=== PATIENT | female | born 1990 | race Caucasian/White ===

== ENCOUNTER 2025-06-03 17:16 | Inpatient (IN) ==
[2025-06-03] MEDS: SODIUM CHLORIDE 0.9% 1,000 ML IV SCH (17:47)
[2025-06-03] MEDS: ACETAMINOPHEN 1,000 MG/100 ML VIAL IV STA (17:47)
[2025-06-03 18:08] LABS: Hematocrit (blood only) 39.7 % (37.0-47.0); Hemoglobin 13.1 g/dl (12.0-16.0); Mean Corpuscular Hemoglobin 30.9 pg (25.0-34.0); Mean Corpuscular Volume 93.6 fL (80.0-100.0); Platelet Count 248 K/uL (130-400); RDW Standard Deviation 44.3 fL (36.4-46.3); Red Blood Count 4.24 M/uL (4.20-5.40); White Blood Count 8.70 K/ul (4.8-10.8)
--- NOTE | 2025-06-03 18:23 | XRay Report ---
Clinical History: Possible sepsis Technique: A frontal view of the chest was obtained Findings: There are no confluent pulmonary infiltrates. The heart size is within normal limits. No pleural effusion or pneumothorax is seen. There is no definite pulmonary nodule. No fracture is noted. No foreign body is seen Impression: No active disease Electronically signed by Catracho Anderson 06-03-2025 6:23 PM
[2025-06-03 18:25] LABS: Immature Granulocytes # (auto) 0.03 K/uL (0.01-0.20); Immature Granulocytes % (auto) 0.3 %
[2025-06-03 18:26] LABS: Alanine Aminotransferase 7 U/L (7-52); Alkaline Phosphatase 95 U/L (34-104); Anion Gap 7 (3-11); Bilirubin,Total 0.4 mg/dl (0.2-1.0); Blood Urea Nitrogen 13 mg/dl (6-23); Calcium 9.1 mg/dl (8.6-10.3); Carbon Dioxide 24 mmol/L (21-32); Chloride 104 mmol/L (98-107); Creatinine Clr Calc Pharmacy 72.1 ml/min; Glucose 95 mg/dl (70-99(Fasting)); Magnesium 1.7 mg/dl (1.7-2.4); Potassium 3.7 mmol/L (3.5-5.1); Sodium 135 mmol/L (136-145); Total Protein 7.5 gm/dl (6.0-8.3)
[2025-06-03 18:36] LABS: INR 1.0 (0.9-1.1); Partial Thromboplastin Time 26 Seconds (21-31); Prothrombin Time 10.4 Seconds (9.0-12.0)
[2025-06-03 19:42] LABS: Influenza A virus by PCR Negative (Neg); Influenza B virus by PCR Negative (Neg); SARS CoV2 RNA(COVID-19) Ceph NEGATIVE (Negative)
[2025-06-03] MEDS: OPTIRAY 320 100ml IV ONE (20:10)
--- NOTE | 2025-06-03 20:37 | CT Scan Report ---
Exam(s): CT ABDOMEN + PELVIS With Contrast Oral - High Density Amt: gastro , IV Amt: 90ml EXAM: CT Abdomen and Pelvis With Intravenous Contrast CLINICAL HISTORY: Reason for exam: rlq pain. TECHNIQUE: Axial computed tomography images of the abdomen and pelvis with intravenous contrast. CTDI is 6.25 mGy and DLP is 292.54 mGy-cm. Automated exposure control was utilized for the study. A dose lowering technique was utilized adhering to the principles of ALARA. CONTRAST: Patient received gastro of Oral - High Density and 90ml of IV contrast COMPARISON: No relevant prior studies available. FINDINGS: Lung bases: Unremarkable. ABDOMEN: Liver: Unremarkable. No mass. Gallbladder and bile ducts: Unremarkable. No calcified stones. No ductal dilation. Pancreas: Unremarkable. No mass. No ductal dilation. Spleen: Unremarkable. No splenomegaly. Adrenals: Unremarkable. No mass. Kidneys and ureters: Symmetric renal enhancement. No hydronephrosis. Subcentimeter cortical cyst left kidney; no follow-up indicated. Stomach and bowel: Circumferential mucosal thickening in the colon, greatest in the transverse colon, concerning for colitis. No obstruction. PELVIS: Appendix: Normal appendix. Bladder: Unremarkable. No mass. Reproductive: Unremarkable as visualized. ABDOMEN and PELVIS: Intraperitoneal space: Trace free pelvic fluid. No free air. Bones/joints: No acute fracture. No dislocation. Soft tissues: Unremarkable. Vasculature: Unremarkable. No abdominal aortic aneurysm. Lymph nodes: Unremarkable. No enlarged lymph nodes. IMPRESSION: 1. Normal appendix. 2. Circumferential mucosal thickening in the colon, greatest in the transverse colon, concerning for colitis. Electronically signed by: Cesia Hamilton M.D. 06/03/25 20:36 PM
[2025-06-03 21:24] LABS: Appearance Urine Clear (Clear); Bacteria Urine Automated None Seen (None Seen); Cast Urine Automated 0-2 /lpf (0-2); Epithelial Cell Urine Auto 0-2 /hpf (0-2); Glucose Urine UA Negative (Negative); RBC Urine Automated >20 /hpf (0-2); WBC Urine Automated 0-5 /hpf (0-5)
[2025-06-03] MEDS ORDERED: VANCOMYCIN CONSULT ACTIVE PRN ×2 (21:32→22:33)
[2025-06-03] MEDS: PIPERACILLIN/TAZOBACTAM 4.5 GM/120 ML BAG IV ONE (21:35)
[2025-06-03] MEDS: ONDANSETRON INJ 2 MG/ML 2 ML VIAL IV STA (21:35)
--- NOTE | 2025-06-03 21:53 | History & Physical Report ---
Date of Service June 03, 2025 Assessment & Plan (1) Fever: (2) Breast cancer: (3) Rash: Plan 34yo female with newly diagnosed metastatic breast cancer not yet on treatment presenting with fever, chills and rigors. Patient had a bone marrow biopsy performed yesterday at [facility]. Presently afebrile, HD stable. Normal WBC count and differential, Procalcitonin and Lactate levels. #Fever - source unclear at present. Patient presently afebrile and non-toxic in appearance -Admit to medical with telemetry -Follow cultures sent from ER -Patient received Vancomycin and Zosyn empirically x 1 dose. Will hold off on additional antibiotics for now as patient developed a rash (uncertain which is the offending agent) -Tylenol PRN -Zofran PRN #Breast Cancer - metastatic to bone, dura. Patient follows at [facility] and is scheduled to start treatment next week. Fever could possibly be secondary to patient's malignancy? -Lovenox ppx -Pain control -Anti-emetics PRN #Rash - patient developed some flushing rash after receiving antibiotics. No documented allergies. Possibly secondary to antibiotics vs contrast dye? Patient states that she developed nausea and diarrhea following administration of contrast dye -IV Benadryl given -Holding additional antibiotics for now History of Present Illness Chief Complaint: fever Primary Care Provider: Socorro Rodriguez MD Kacey Beckett is a 34yo female with history of metastatic breast cancer presenting with fever, chills and rigors. Patient discovered a lump in her right breast 8 months ago. She had an ultrasound performed 03/07 which showed a mass at the 10 o'clock position with axillary lymphadenopathy. Patient had an US guided biopsy performed on 02/26/25 which revealed an invasive mammary carcinoma grade 3, ER+ DC-, HER-2 - . She had a PET scan performed on 04/09/25 which revealed an ischial lytic bone lesion. Patient follows with Dr. Vasquez at [facility] and is planning to start her treatment plan next week. She had a bone marrow biopsy performed yesterday at [facility]. Presents today with fever, chills and rigors. After her CT scan here she developed nausea, vomiting x 5 episodes and diarrhea. No cough, SOB, chest pain. No urinary symptoms. In the ER patient is afebrile. ER Course: Vancomycin Zosyn NSS x 1L Tylenol IV Contrast Dye Zofran Allergies Allergy/AdvReac Type Severity Reaction Status Date / Time No Known Allergies Allergy Unverified 06/03/25 18:26 Home Medications Medication Instructions Recorded Confirmed Type No Known Home Medications 06/03/25 06/03/25 History Past Med/Surg History Problem List (Updated 06/04/25 @ 03:43 by Karla Muse DO) Rash Fever Medical History Breast cancer Social History Smoking Status: Never smoker Hx Alcohol Use: No Hx Substance Use: Yes Last Used Substance Other:: yesterday Substance Use Type Other:: THC Preferred Language: Cuban Supervisor Remelt Required: No Beliefs That Will Affect Care: None Current Living Situation: Family Other Information That Helps Us Care for You: No Feels Safe at Home: Yes Safety Concerns: Feels Safe At This Time Assistive Devices: None Review of Systems Review of Systems: All systems reviewed & are unremarkable except as noted in HPI & below Physical Exam Physical Exam: General: patient resting comfortably, NAD, non-toxic in appearance, AA&O x 4 Skin: warm, dry, intact, no rashes or lesions HEENT: NC/AT, PERRL, EOMI, anicteric sclera, conjunctiva without injection, external ear normal to inspection and nontender, nares patent, moist mucus membranes, dentition intact, no oropharyngeal lesions, neck supple, trachea midline, no LAD, no thyromegaly, no JVD Heart: +S1/S2, regular, no m/r/g Lungs: equal air entry bilaterally, no rales/rhonchi/wheezes Abd: +BS, soft, NT/ND, no masses/organomegaly/ascites Ext: warm, 2+ pulses in UE/LE bilaterally, no clubbing/cyanosis or edema Neuro: nonfocal, patient AA&O x 4, speech intact, no facial droop, moving all extremities on command with equal strength 5/5 Biopsy site with no obvious evidence of infection Results & Data Results & Data Vital Signs (Past 12 Hours) Vital Signs Temp Pulse Pulse Resp BP BP Pulse Ox 06/03/25 21:43 76 06/03/25 20:30 101 H 22 98 06/03/25 20:30 96/67 L 06/03/25 19:51 95 H 20 98 06/03/25 19:42 101 H 13 96 06/03/25 19:39 90 15 95 06/03/25 19:12 113 H 17 95 06/03/25 19:00 105/73 06/03/25 19:00 105/73 06/03/25 19:00 91 H 22 97 06/03/25 19:00 105/73 06/03/25 18:52 37.6 C 06/03/25 18:45 105 H 16 96 06/03/25 18:30 101/81 06/03/25 18:30 101/81 06/03/25 18:27 104 H 11 L 97 06/03/25 18:12 100 H 23 97 06/03/25 18:03 98 H 15 99 06/03/25 18:00 94/61 L 06/03/25 18:00 94/61 L 06/03/25 17:59 98 06/03/25 17:55 99 H 06/03/25 17:27 38.0 C H 91 H 20 94/65 L 98 06/03/25 17:21 37.9 C H 110 H 18 107/69 98 O2 Del Method 06/03/25 21:43 06/03/25 20:30 06/03/25 20:30 06/03/25 19:51 06/03/25 19:42 06/03/25 19:39 06/03/25 19:12 06/03/25 19:00 06/03/25 19:00 06/03/25 19:00 06/03/25 19:00 06/03/25 18:52 06/03/25 18:45 06/03/25 18:30 06/03/25 18:30 06/03/25 18:27 06/03/25 18:12 06/03/25 18:03 06/03/25 18:00 06/03/25 18:00 06/03/25 17:59 Room Air 06/03/25 17:55 06/03/25 17:27 Room Air 06/03/25 17:21 Room Air Laboratory Results Laboratory Results WBC 8.70 K/ul (4.8-10.8) 06/03/25 17:53 RBC 4.24 M/uL (4.20-5.40) 06/03/25 17:53 Hgb 13.1 g/dl (12.0-16.0) 06/03/25 17:53 Hct 39.7 % (37.0-47.0) 06/03/25 17:53 MCV 93.6 fL (80.0-100.0) 06/03/25 17:53 MCH 30.9 pg (25.0-34.0) 06/03/25 17:53 MCHC 33.0 g/dL (32.0-36.0) 06/03/25 17:53 RDW Std Deviation 44.3 fL (36.4-46.3) 06/03/25 17:53 RDW Coeff of Malinda 12.9 % (11.5-14.5) 06/03/25 17:53 Plt Count 248 K/uL (130-400) 06/03/25 17:53 MPV 10.0 fL (9.4-12.4) 06/03/25 17:53 Immature Gran % (Auto) 0.3 % 06/03/25 17:53 Neut % (Auto) 90.8 % 06/03/25 17:53 Lymph % (Auto) 4.4 % 06/03/25 17:53 [place] % (Auto) 4.3 % 06/03/25 17:53 Eos % (Auto) 0.0 % 06/03/25 17:53 Baso % (Auto) 0.2 % 06/03/25 17:53 Neut # (Auto) 7.90 K/uL (1.40-6.50) H 06/03/25 17:53 Lymph # (Auto) 0.38 K/uL (1.20-3.40) L 06/03/25 17:53 Stanton # (Auto) 0.37 K/uL (0.11-0.59) 06/03/25 17:53 Eos # (Auto) 0.00 K/uL (0.00-0.50) 06/03/25 17:53 Baso # (Auto) 0.02 K/uL (0.00-0.20) 06/03/25 17:53 Immature Gran # (Auto) 0.03 K/uL (0.01-0.20) 06/03/25 17:53 PT 10.4 Seconds (9.0-12.0) 06/03/25 17:53 INR 1.0 (0.9-1.1) 06/03/25 17:53 APTT 26 Seconds (21-31) 06/03/25 17:53 PTT Ratio 1.0 06/03/25 17:53 Sodium 135 mmol/L (136-145) L 06/03/25 17:53 Potassium 3.7 mmol/L (3.5-5.1) 06/03/25 17:53 Chloride 104 mmol/L (98-107) 06/03/25 17:53 Carbon Dioxide 24 mmol/L (21-32) 06/03/25 17:53 Anion Gap 7 (3-11) 06/03/25 17:53 BUN 13 mg/dl (6-23) 06/03/25 17:53 Creatinine 0.79 mg/dl (0.6-1.2) 06/03/25 17:53 Est Cr Clr Drug Dosing 72.1 ml/min 06/03/25 17:53 eGFR 100.60 06/03/25 17:53 BUN/Creatinine Ratio 16.5 (10-20) 06/03/25 17:53 Glucose 95 mg/dl (70-99(Fasting)) 06/03/25 17:53 Lactate 1.5 mmol/L (0.4-2.0) 06/03/25 17:53 Calcium 9.1 mg/dl (8.6-10.3) 06/03/25 17:53 Magnesium 1.7 mg/dl (1.7-2.4) 06/03/25 17:53 Total Bilirubin 0.4 mg/dl (0.2-1.0) 06/03/25 17:53 Direct Bilirubin 0.1 mg/dl (0-0.2) 06/03/25 17:53 AST 15 U/L (13-39) 06/03/25 17:53 ALT 7 U/L (7-52) 06/03/25 17:53 Alkaline Phosphatase 95 U/L (34-104) 06/03/25 17:53 Troponin I High Sens < 2.3 pg/ml (0-14) 06/03/25 17:53 Total Protein 7.5 gm/dl (6.0-8.3) 06/03/25 17:53 Albumin 4.2 gm/dl (3.4-5.0) 06/03/25 17:53 Procalcitonin 0.07 ng/ml (0-0.5) 06/03/25 17:53 Urine Color Yellow 06/03/25 20:28 Urine Appearance Clear (Clear) 06/03/25 20: Urine pH 7.0 (4.5-7.5) 06/03/25 20: Ur Specific [place] > 1.045 (1.000-1.030) H 06/03/25 20: Urine Protein Negative (Negative) 06/03/25 20: Urine Glucose (UA) Negative (Negative) 06/03/25 20: Urine Ketones Negative (Negative) 06/03/25 20: Urine Blood 3+ (Negative) H 06/03/25 20: Urine Nitrite Negative (Negative) 06/03/25 20: Urine Bilirubin Negative (Negative) 06/03/25 20: Urine Urobilinogen Negative (Negative) 06/03/25 20:28 Ur Leukocyte Esterase Negative (Negative) 06/03/25 20:28 Urine WBC (Auto) 0-5 /hpf (0-5) 06/03/25 20: Urine RBC (Auto) >20 /hpf (0-2) H 06/03/25 20: U Hyaline Cast (Auto) 0-2 /lpf (0-2) 06/03/25 20: U Epithel Cells (Auto) 0-2 /hpf (0-2) 06/03/25 20:28 Urine Bacteria (Auto) None Seen (None Seen) 06/03/25 20:28 Urine Comment 06/03/25 20:28 SARS-CoV-2 (PCR) NEGATIVE (Negative) 06/03/25 18:59 Influenza Type A (PCR) Negative (Neg) 06/03/25 18:59 Influenza Type B (PCR) Negative (Neg) 06/03/25 18:59 RSV (RT-PCR) Negative (Neg) 06/03/25 18:59 Impressions Chest X-Ray 06/03/25 17:28 Clinical History: Possible sepsis Technique: A frontal view of the chest was obtained Findings: There are no confluent pulmonary infiltrates. The heart size is within normal limits. No pleural effusion or pneumothorax is seen. There is no definite pulmonary nodule. No fracture is noted. No foreign body is seen Impression: No active disease Electronically signed by Catracho Anderson 06-03-2025 6:23 PM Abdomen/Pelvis CT 06/03/25 17:41 Exam(s): CT ABDOMEN + PELVIS With Contrast Oral - High Density Amt: gastro , IV Amt: 90ml EXAM: CT Abdomen and Pelvis With Intravenous Contrast CLINICAL HISTORY: Reason for exam: rlq pain. TECHNIQUE: Axial computed tomography images of the abdomen and pelvis with intravenous contrast. CTDI is 6.25 mGy and DLP is 292.54 mGy-cm. Automated exposure control was utilized for the study. A dose lowering technique was utilized adhering to the principles of ALARA. CONTRAST: Patient received gastro of Oral - High Density and 90ml of IV contrast COMPARISON: No relevant prior studies available. FINDINGS: Lung bases: Unremarkable. ABDOMEN: Liver: Unremarkable. No mass. Gallbladder and bile ducts: Unremarkable. No calcified stones. No ductal dilation. Pancreas: Unremarkable. No mass. No ductal dilation. Spleen: Unremarkable. No splenomegaly. Adrenals: Unremarkable. No mass. Kidneys and ureters: Symmetric renal enhancement. No hydronephrosis. Subcentimeter cortical cyst left kidney; no follow-up indicated. Stomach and bowel: Circumferential mucosal thickening in the colon, greatest in the transverse colon, concerning for colitis. No obstruction. PELVIS: Appendix: Normal appendix. Bladder: Unremarkable. No mass. Reproductive: Unremarkable as visualized. ABDOMEN and PELVIS: Intraperitoneal space: Trace free pelvic fluid. No free air. Bones/joints: No acute fracture. No dislocation. Soft tissues: Unremarkable. Vasculature: Unremarkable. No abdominal aortic aneurysm. Lymph nodes: Unremarkable. No enlarged lymph nodes. IMPRESSION: 1. Normal appendix. 2. Circumferential mucosal thickening in the colon, greatest in the transverse colon, concerning for colitis. Electronically signed by: Cesia Hamilton M.D. 06/03/25 20:36 PM Code Status & VTE Plan VTE Prophylaxis Plan VTE Prophylaxis will be ordered: Yes PG Care Time/CCT Total # of Minutes Spent Total Time Spent with Patient: Total time spent is greater than 50% in coordination of care (as documented) at patient's floor/unit and/or counseling patient: Coding Level of Care Code 41835 INT INP/OBS CARE 3/75MIN Diagnoses Fever R50.9 Breast cancer C50.919 Rash R21
--- NOTE | 2025-06-03 21:54 | Emergency Department Note ---
History of Present Illness General Chief complaint: Fever Stated complaint: FEVER AFTER BONE MARROW BIOPSY. STAGE IV BC Time Seen by Provider: 06/03/25 17:27 History of Present Illness Provider complaint: Fever Maximum Pain Intensity: 4 34-year-old female presents emergency department for fever. Patient reports she has stage IV breast cancer and had a bone marrow biopsy done at [facility] yesterday. She reports nausea and some abdominal pain. She reports no melena or hematochezia. No hematemesis coffee-ground emesis or bilious vomiting. No chest pain or difficulty breathing. No headache. No dysuria or hematuria. No cough or congestion. Home Medications Medication Instructions Recorded Confirmed Type No Known Home Medications 06/03/25 06/03/25 History Allergies Allergy/AdvReac Type Severity Reaction Status Date / Time No Known Allergies Allergy Unverified 06/03/25 18:26 Past Med/Surg History Problem List (Updated 06/03/25 @ 22:22 by Shalom Mcclain MD) Fever of unknown origin (Acute) Medical History Breast cancer Social History Smoking Status: Never smoker Preferred Language: French Feels Safe at Home: Yes Physical Exam Vital Signs Vital Signs - 24 hr 06/03/25 17:21 06/03/25 17:27 06/03/25 17:55 Temperature 37.9 C H 38.0 C H Temperature Source Temporal Artery Scan Oral Pulse Rate 110 H 99 H Pulse Rate [Apical] 91 H Pulse Rate from SpO2 Sensor Respiratory Rate 18 20 Respiratory Effort / Characteristics Non-Labored Spontaneous Non-Labored Spontaneous Respiratory Depth Normal Normal Respiratory Pattern Regular Regular Blood Pressure 107/69 Blood Pressure [Left Arm] 94/65 L Blood Pressure Mean 81 Blood Pressure Mean [Left Arm] 74 Blood Pressure Position [Left Arm] Lying Pulse Oximetry 98 98 Oxygen Delivery Method Room Air Room Air Sepsis Recent Fever Within 48 Hours No Sepsis New/Unexplained Change in Mental Status N/A Sepsis Action Taken by Nursing No Action Required 06/03/25 17:59 06/03/25 18:00 06/03/25 18:00 Temperature Temperature Source Pulse Rate Pulse Rate [Apical] Pulse Rate from SpO2 Sensor Respiratory Rate Respiratory Effort / Characteristics Respiratory Depth Respiratory Pattern Blood Pressure 94/61 L 94/61 L Blood Pressure [Left Arm] Blood Pressure Mean 68 68 Blood Pressure Mean [Left Arm] Blood Pressure Position [Left Arm] Pulse Oximetry 98 Oxygen Delivery Method Room Air Sepsis Recent Fever Within 48 Hours Sepsis New/Unexplained Change in Mental Status Sepsis Action Taken by Nursing 06/03/25 18:03 06/03/25 18:12 06/03/25 18:27 Temperature Temperature Source Pulse Rate 98 H 100 H 104 H Pulse Rate [Apical] Pulse Rate from SpO2 Sensor 96 H 101 H 105 H Respiratory Rate 15 23 11 L Respiratory Effort / Characteristics Respiratory Depth Respiratory Pattern Blood Pressure Blood Pressure [Left Arm] Blood Pressure Mean Blood Pressure Mean [Left Arm] Blood Pressure Position [Left Arm] Pulse Oximetry 99 97 97 Oxygen Delivery Method Sepsis Recent Fever Within 48 Hours Sepsis New/Unexplained Change in Mental Status Sepsis Action Taken by Nursing 06/03/25 18:30 06/03/25 18:30 06/03/25 18:45 Temperature Temperature Source Pulse Rate 105 H Pulse Rate [Apical] Pulse Rate from SpO2 Sensor 103 H Respiratory Rate 16 Respiratory Effort / Characteristics Respiratory Depth Respiratory Pattern Blood Pressure 101/81 101/81 Blood Pressure [Left Arm] Blood Pressure Mean 91 91 Blood Pressure Mean [Left Arm] Blood Pressure Position [Left Arm] Pulse Oximetry 96 Oxygen Delivery Method Sepsis Recent Fever Within 48 Hours Sepsis New/Unexplained Change in Mental Status Sepsis Action Taken by Nursing 06/03/25 18:52 06/03/25 19:00 06/03/25 19:00 Temperature 37.6 C Temperature Source Oral Pulse Rate 91 H Pulse Rate [Apical] Pulse Rate from SpO2 Sensor 95 H Respiratory Rate 22 Respiratory Effort / Characteristics Respiratory Depth Respiratory Pattern Blood Pressure 105/73 Blood Pressure [Left Arm] Blood Pressure Mean 86 Blood Pressure Mean [Left Arm] Blood Pressure Position [Left Arm] Pulse Oximetry 97 Oxygen Delivery Method Sepsis Recent Fever Within 48 Hours Sepsis New/Unexplained Change in Mental Status Sepsis Action Taken by Nursing 06/03/25 19:00 06/03/25 19:00 06/03/25 19:12 Temperature Temperature Source Pulse Rate 113 H Pulse Rate [Apical] Pulse Rate from SpO2 Sensor 113 H Respiratory Rate 17 Respiratory Effort / Characteristics Respiratory Depth Respiratory Pattern Blood Pressure 105/73 105/73 Blood Pressure [Left Arm] Blood Pressure Mean 86 86 Blood Pressure Mean [Left Arm] Blood Pressure Position [Left Arm] Pulse Oximetry 95 Oxygen Delivery Method Sepsis Recent Fever Within 48 Hours Sepsis New/Unexplained Change in Mental Status Sepsis Action Taken by Nursing 06/03/25 19:39 06/03/25 19:42 06/03/25 19:51 Temperature Temperature Source Pulse Rate 90 101 H 95 H Pulse Rate [Apical] Pulse Rate from SpO2 Sensor 93 H 99 H 98 H Respiratory Rate 15 13 20 Respiratory Effort / Characteristics Respiratory Depth Respiratory Pattern Blood Pressure Blood Pressure [Left Arm] Blood Pressure Mean Blood Pressure Mean [Left Arm] Blood Pressure Position [Left Arm] Pulse Oximetry 95 96 98 Oxygen Delivery Method Sepsis Recent Fever Within 48 Hours Sepsis New/Unexplained Change in Mental Status Sepsis Action Taken by Nursing 06/03/25 20:30 06/03/25 20:30 06/03/25 21:43 Temperature Temperature Source Pulse Rate 101 H 76 Pulse Rate [Apical] Pulse Rate from SpO2 Sensor 98 H Respiratory Rate 22 Respiratory Effort / Characteristics Respiratory Depth Respiratory Pattern Blood Pressure 96/67 L Blood Pressure [Left Arm] Blood Pressure Mean 84 Blood Pressure Mean [Left Arm] Blood Pressure Position [Left Arm] Pulse Oximetry 98 Oxygen Delivery Method Sepsis Recent Fever Within 48 Hours Sepsis New/Unexplained Change in Mental Status Sepsis Action Taken by Nursing 06/03/25 21:51 06/03/25 22:06 06/03/25 22:13 Temperature Temperature Source Pulse Rate 84 79 76 Pulse Rate [Apical] Pulse Rate from SpO2 Sensor 85 82 Respiratory Rate 24 19 20 Respiratory Effort / Characteristics Respiratory Depth Respiratory Pattern Blood Pressure 114/85 118/84 Blood Pressure [Left Arm] Blood Pressure Mean 94 Blood Pressure Mean [Left Arm] Blood Pressure Position [Left Arm] Pulse Oximetry 97 98 99 Oxygen Delivery Method Room Air Sepsis Recent Fever Within 48 Hours Sepsis New/Unexplained Change in Mental Status Sepsis Action Taken by Nursing Physical Exam HENT: Exam performed. -Head: Normocephalic and atraumatic. -Right Ear: External ear normal. No mastoid erythema -Left Ear: External ear normal. No mastoid erythema -Mouth/Throat: The oropharynx is clear and moist. No trismus in the jaw. No dental abscesses or uvula swelling. No oropharyngeal exudate or tonsillar abscesses. EYES: Conjunctivae and EOM are normal. Pupils are equal, round, and reactive to light. Right eye exhibits no discharge. Left eye exhibits no discharge. No scleral icterus. NECK: Normal range of motion. Neck supple. No JVD present. No rigidity. No tracheal deviation and normal range of motion present. CV: Normal rate, regular rhythm, normal heart sounds and intact distal pulses. There is no peripheral edema. Palpable radial pulses bue. PULM/CHEST: Effort normal and breath sounds normal. No respiratory distress. No stridor. She has no wheezes. She has no rales. ABD: The abdomen is soft.There is tenderness to palpation of the right lower quadrant. There is no rebound, no guarding MUSC/SKEL: Normal range of motion. There is no peripheral edema, tenderness or deformity. LYMPH: No cervical adenopathy. NEURO: She is alert and oriented to person, place, and time. She has normal strength. No cranial nerve deficit or sensory deficit. Coordination and gait normal. GCS eye subscore is 4. GCS verbal subscore is 5. GCS motor subscore is 6. Cerebellar tests wnl. SKIN: Bone marrow biopsy site is clean and dry with no surrounding erythema. No discharge from the bone marrow biopsy site. PSYCH: She has a normal mood and affect. Behavior is normal. Judgment and thought content normal. Course Course 172: The patient was evaluated in room A12. A complete history and physical exam was performed Cardiac monitoring: An order was placed for continuous cardiac monitoring. The monitor shows a rate of 100 with sinus rhythm interpreted by la Sepsis protocols initiated. 2100: Vital signs stable. Labs and imaging are unremarkable. White blood cell count lactic acid procalcitonin urine dip chest x-ray unremarkable. CT of the abdomen pelvis shows colitis. Discussed the case with [place] oncology Dr. Kennedy. He states that there is no need for transfer. He recommends inpatient admission at this facility to follow blood cultures. He recommends starting the patient on vancomycin and Zosyn. He recommends against discharge from this facility at this time. Patient be admitted to the [facility] Hospital[facility] team. Administered Medications Discontinued Medications Sodium Chloride (Nss) 1,000 mls @ 999 mls/hr IV .Q1H1M RHIANNON Stop: 06/03/25 18:30 Last Infusion: 06/03/25 18:52 Dose: Infused Documented By: Admin: 06/03/25 17:47 Dose: 999 mls/hr Documented By: MATTHEW Acetaminophen (Ofirmev) 1,000 mg in 100 mls @ 400 mls/hr IV NOW STA Stop: 06/03/25 17:43 Last Infusion: 06/03/25 18:37 Dose: Infused Documented By: Admin: 06/03/25 17:47 Dose: 400 mls/hr Documented By: MATTHEW Piperacillin Sod/Tazobactam Sod (Zosyn) 4.5 gm in 120 mls @ 240 mls/hr IV NOW ONE Stop: 06/03/25 22:01 Last Infusion: 06/03/25 22:15 Dose: Infused Documented By: Admin: 06/03/25 21:35 Dose: 240 mls/hr Documented By: LARISSA Ioversol (Optiray 320 100ml) 91 ml IV ONCE ONE Stop: 06/03/25 20:11 Last Admin: 06/03/25 20:10 Dose: 91 ml Documented By: CAROLYN Ondansetron HCl (Ondansetron Inj 2 Mg/Ml 2 Ml Vial) 4 mg IV NOW STA Stop: 06/03/25 21:33 Last Admin: 06/03/25 21:35 Dose: 4 mg Documented By: LARISSA Medical Decision Making Laboratory Data Attestation: I reviewed the patient's lab results. 06/03/25 17:53 06/03/25 17:53 Lab Results 06/03/25 06/03/25 06/03/25 Range/Units 17:53 18:59 20:28 WBC 8.70 (4.8-10.8) K/ul RBC 4.24 (4.20-5.40) M/uL Hgb 13.1 (12.0-16.0) g/dl Hct 39.7 (37.0-47.0) % MCV 93.6 (80.0-100.0) fL MCH 30.9 (25.0-34.0) pg MCHC 33.0 (32.0-36.0) g/dL RDW Std Deviation 44.3 (36.4-46.3) fL RDW Coeff of Malinda 12.9 (11.5-14.5) % Plt Count 248 (130-400) K/uL MPV 10.0 (9.4-12.4) fL Immature Gran % (Auto) 0.3 % Neut % (Auto) 90.8 % Lymph % (Auto) 4.4 % [place] % (Auto) 4.3 % Eos % (Auto) 0.0 % Baso % (Auto) 0.2 % Neut # (Auto) 7.90 H (1.40-6.50) K/uL Lymph # (Auto) 0.38 L (1.20-3.40) K/uL [place] # (Auto) 0.37 (0.11-0.59) K/uL Eos # (Auto) 0.00 (0.00-0.50) K/uL Baso # (Auto) 0.02 (0.00-0.20) K/uL Immature Gran # (Auto) 0.03 (0.01-0.20) K/uL PT 10.4 (9.0-12.0) Seconds INR 1.0 (0.9-1.1) APTT 26 (21-31) Seconds PTT Ratio 1.0 Sodium 135 L (136-145) mmol/L Potassium 3.7 (3.5-5.1) mmol/L Chloride 104 (98-107) mmol/L Carbon Dioxide 24 (21-32) mmol/L Anion Gap 7 (3-11) BUN 13 (6-23) mg/dl Creatinine 0.79 (0.6-1.2) mg/dl Est Cr Clr Drug Dosing 72.1 ml/min eGFR 100.60 BUN/Creatinine Ratio 16.5 (10-20) Glucose 95 (70-99(Fasting)) mg/dl Lactate 1.5 (0.4-2.0) mmol/L Calcium 9.1 (8.6-10.3) mg/dl Magnesium 1.7 (1.7-2.4) mg/dl Total Bilirubin 0.4 (0.2-1.0) mg/dl Direct Bilirubin 0.1 (0-0.2) mg/dl AST 15 (13-39) U/L ALT 7 (7-52) U/L Alkaline Phosphatase 95 (34-104) U/L Troponin I High Sens < 2.3 (0-14) pg/ml Total Protein 7.5 (6.0-8.3) gm/dl Albumin 4.2 (3.4-5.0) gm/dl Procalcitonin 0.07 (0-0.5) ng/ml Urine Color Yellow Urine Appearance Clear (Clear) Urine pH 7.0 (4.5-7.5) Ur Specific [place] > 1.045 H (1.000-1.030) Urine Protein Negative (Negative) Urine Glucose (UA) Negative (Negative) Urine Ketones Negative (Negative) Urine Blood 3+ H (Negative) Urine Nitrite Negative (Negative) Urine Bilirubin Negative (Negative) Urine Urobilinogen Negative (Negative) Ur Leukocyte Esterase Negative (Negative) Urine WBC (Auto) 0-5 (0-5) /hpf Urine RBC (Auto) >20 H (0-2) /hpf U Hyaline Cast (Auto) 0-2 (0-2) /lpf U Epithel Cells (Auto) 0-2 (0-2) /hpf Urine Bacteria (Auto) None Seen (None Seen) Urine Comment SARS-CoV-2 (PCR) NEGATIVE (Negative) Influenza Type A (PCR) Negative (Neg) Influenza Type B (PCR) Negative (Neg) RSV (RT-PCR) Negative (Neg) Imaging Data Attestation: I personally reviewed and interpreted this imaging study as follows: My Impression: Chest x-ray negative. Airway clear. No pneumothorax. No consolidation. No cardiomegaly or cephalization.. No free air under the diaphragm. No fractures of the skeletal structures. Radiologist's Impression: Chest X-Ray 06/03/25 17:28 Clinical History: Possible sepsis Technique: A frontal view of the chest was obtained Findings: There are no confluent pulmonary infiltrates. The heart size is within normal limits. No pleural effusion or pneumothorax is seen. There is no definite pulmonary nodule. No fracture is noted. No foreign body is seen Impression: No active disease Electronically signed by Catracho Anderson 06-03-2025 6:23 PM Abdomen/Pelvis CT 06/03/25 17:41 Exam(s): CT ABDOMEN + PELVIS With Contrast Oral - High Density Amt: gastro , IV Amt: 90ml EXAM: CT Abdomen and Pelvis With Intravenous Contrast CLINICAL HISTORY: Reason for exam: rlq pain. TECHNIQUE: Axial computed tomography images of the abdomen and pelvis with intravenous contrast. CTDI is 6.25 mGy and DLP is 292.54 mGy-cm. Automated exposure control was utilized for the study. A dose lowering technique was utilized adhering to the principles of ALARA. CONTRAST: Patient received gastro of Oral - High Density and 90ml of IV contrast COMPARISON: No relevant prior studies available. FINDINGS: Lung bases: Unremarkable. ABDOMEN: Liver: Unremarkable. No mass. Gallbladder and bile ducts: Unremarkable. No calcified stones. No ductal dilation. Pancreas: Unremarkable. No mass. No ductal dilation. Spleen: Unremarkable. No splenomegaly. Adrenals: Unremarkable. No mass. Kidneys and ureters: Symmetric renal enhancement. No hydronephrosis. Subcentimeter cortical cyst left kidney; no follow-up indicated. Stomach and bowel: Circumferential mucosal thickening in the colon, greatest in the transverse colon, concerning for colitis. No obstruction. PELVIS: Appendix: Normal appendix. Bladder: Unremarkable. No mass. Reproductive: Unremarkable as visualized. ABDOMEN and PELVIS: Intraperitoneal space: Trace free pelvic fluid. No free air. Bones/joints: No acute fracture. No dislocation. Soft tissues: Unremarkable. Vasculature: Unremarkable. No abdominal aortic aneurysm. Lymph nodes: Unremarkable. No enlarged lymph nodes. IMPRESSION: 1. Normal appendix. 2. Circumferential mucosal thickening in the colon, greatest in the transverse colon, concerning for colitis. Electronically signed by: Cesia Hamilton M.D. 06/03/25 20:36 PM ECG Data Attestation: I personally reviewed and interpreted this ECG as follows: Rate (beats per minute): 109 Rhythm: + sinus tachycardia ECG Intervals/blocks: + Normal VT and + Normal QT-c ECG ST segments: + Normal ST segments Additional Comments: QRS 78 MDM Narrative 1727: The patient was evaluated in room A12. A complete history and physical exam was performed Cardiac monitoring: An order was placed for continuous cardiac monitoring. The monitor shows a rate of 100 with sinus rhythm interpreted by la Sepsis protocols initiated. 210: Vital signs stable. Labs and imaging are unremarkable. White blood cell count lactic acid procalcitonin urine dip chest x-ray unremarkable. CT of the abdomen pelvis shows colitis. Discussed the case with [place] oncology Dr. Kennedy. He states that there is no need for transfer. He recommends inpatient admission at this facility to follow blood cultures. He recommends starting the patient on vancomycin and Zosyn. He recommends against discharge from this facility at this time. Patient be admitted to the [facility] hospitalist team. Impression & Plan Fever of unknown origin Discharge Plan Visit Data Chief Complaint: Fever Stated Complaint: FEVER AFTER BONE MARROW BIOPSY. STAGE IV BC ED Provider: Shalom Mcclain Discharge Problem: Fever of unknown origin Patient Disposition: Being Evaluated by Hospitalist Condition: Fair Discharge Instructions Interventions: ED Discharge Assessment Last Done: 07/22/25 22:13 Forms Stand Alone Forms: My [facility] Prescriptions Prescriptions: No Action No Known Home Medications Referrals Referrals: Socorro Rodriguez MD [Primary Care Provider] -
[2025-06-03] MEDS: ENOXAPARIN INJ 40 MG/0.4 ML SYR SQ SCH (23:13)
[2025-06-03] MEDS: LACTATED RINGER'S 1,000 ML IV SCH (23:23)
[2025-06-03] MEDS: VANCOMYCIN HCL 1,000 MG/270 ML BAG IV ONE (23:24)
[2025-06-03] MEDS: VANCOMYCIN HCL 1,000 MG in SODIUM CHLORIDE 0.9% 500 ML IV ONE (23:31)
[2025-06-04] MEDS: MAGNESIUM SULFATE / D5W 1 GM/100 ML BAG IV ONE (00:46)
[2025-06-04] MEDS: VANCOMYCIN 750 MG in SODIUM CHLORIDE 0.9% 250 ML IV SCH (01:06)
[2025-06-04] MEDS: LACTATED RINGER'S 1,000 ML IV ONE (01:10)
[2025-06-04] MEDS: diphenhydrAMINE 50 MG/ML VIAL IV STA (01:14)
--- NOTE | 2025-06-04 01:15 | Communication Note ---
Date of Service: June 04, 2025 Alerted by nurse around 00:30 that pt was sinus tachycardia to the 110-120s, BP okay, afebrile. Pt complaining of flushing. Went to bedside to see pt. Noted that she was indeed flushed, particular face and chest, no obvious rashes otherwise, speaking well, no obvious airway compromise or wheezing. Pt denies chest pain or SOB, she states she feels very itchy. Pt had a dose of zosyn and vancomycin tonight. Suspect mild hypersensitivity/allergic reaction. Given 1 L bolus LR + IV Benadryl dose. Precepted with attending, zosyn put on hold, continue vancomycin for now. Pt was only receiving IVF + magnesium at the time of this reaction. Resident Activity Tracking Resident Involvement: Resident Care Provided Care Provided: [facility]
[2025-06-04] MEDS ORDERED: PIPERACILLIN/TAZOBACTAM 4.5 GM/100 ML BAG IV SCH (02:00)
[2025-06-04 02:54] VITALS: RESP 18
[2025-06-04] MEDS: ACETAMINOPHEN 325 MG TAB PO PRN (02:58)
[2025-06-04] MEDS: ONDANSETRON INJ 2 MG/ML 2 ML VIAL IV PRN (02:59)
[2025-06-04 06:59] LABS: Hematocrit (blood only) 32.7 % (37.0-47.0); Hemoglobin 10.8 g/dl (12.0-16.0); Mean Corpuscular Hemoglobin 31.4 pg (25.0-34.0); Mean Corpuscular Volume 95.1 fL (80.0-100.0); Platelet Count 197 K/uL (130-400); RDW Standard Deviation 45.1 fL (36.4-46.3); Red Blood Count 3.44 M/uL (4.20-5.40); White Blood Count 6.38 K/ul (4.8-10.8)
[2025-06-04 07:23] LABS: Anion Gap 6.0 (3-11); Blood Urea Nitrogen 8.0 mg/dl (6-23); Calcium 8.2 mg/dl (8.6-10.3); Carbon Dioxide 25.0 mmol/L (21-32); Chloride 109.0 mmol/L (98-107); Creatinine Clr Calc Pharmacy 80.2 ml/min; Glucose 102.0 mg/dl (70-99(Fasting)); Potassium 3.6 mmol/L (3.5-5.1); Sodium 140.0 mmol/L (136-145)
--- NOTE | 2025-06-04 12:19 | Hospitalist Progress Note ---
Date of Service June 04, 2025 Assessment & Plan (1) Fever: (2) Breast cancer: (3) Rash: Plan 34yo female with newly diagnosed metastatic breast cancer not yet on treatment presenting with fever, chills and rigors. Patient had a bone marrow biopsy performed yesterday at [facility]. Presently afebrile, HD stable. Normal WBC count and differential, Procalcitonin and Lactate levels. #Fever - source unclear at present. Patient presently afebrile and non-toxic in appearance -Admit to medical with telemetry -Follow cultures sent from ER Labs unremarkable -Patient received Vancomycin and Zosyn empirically x 1 dose. Will hold off on additional antibiotics for now as patient developed a rash (uncertain which is the offending agent) Continue to vital signs -Tylenol PRN -Zofran PRN #Breast Cancer - metastatic to bone, dura. Patient follows at [facility] and is scheduled to start treatment next week. Fever could possibly be secondary to patient's malignancy? -Lovenox ppx -Pain control -Anti-emetics PRN #Rash - patient developed some flushing rash after receiving antibiotics. No documented allergies. Possibly secondary to antibiotics vs contrast dye? Patient states that she developed nausea and diarrhea following administration of contrast dye -IV Benadryl given -Holding additional antibiotics for now Admission and Anticipated Discharge Date Admission Date: June 03, 2025 Subjective Patient feels well at this time. Denies chest pain or shortness of breath. No more has any redness on her skin. Has not spiked a fever since last evening. Review of Systems Review of Systems: All systems reviewed & are unremarkable except as noted in Subjective Physical Exam Physical Exam: General: Awake, conversant Heart: S1, S2/regular rate and rhythm, no murmur rubs or gallops Lungs: Clear to auscultation bilaterally. Normal effort Abdomen: Soft/nontender/nondistended. No hepatosplenomegaly Extremities: No clubbing/cyanosis. No edema Behavior: Appropriate, cooperative Results & Data Results & Data Vital Signs (Past 12 Hours) Vital Signs Temp Pulse Pulse Resp BP Pulse Ox O2 Del Method 06/04/25 10:40 37.2 C 77 18 107/65 99 Room Air 06/04/25 07:37 37.0 C 86 18 97/63 L 99 Room Air 06/04/25 05:05 71 06/04/25 02:53 36.8 C 83 18 96/66 L 100 Room Air 06/04/25 00:53 123 H 06/04/25 00:31 36.5 C 130 H 20 108/67 100 Room Air Laboratory Results Abnormal lab results 06/03/25 06/03/25 06/04/25 Range/Units 17:53 20:28 06:32 RBC 3.44 L (4.20-5.40) M/uL Hgb 10.8 L (12.0-16.0) g/dl Hct 32.7 L (37.0-47.0) % Neut # (Auto) 7.90 H (1.40-6.50) K/uL Lymph # (Auto) 0.38 L (1.20-3.40) K/uL Sodium 135 L (136-145) mmol/L Chloride 109 H (98-107) mmol/L Glucose 102 H (70-99(Fasting)) mg/dl Calcium 8.2 L (8.6-10.3) mg/dl Ur Specific [place] > 1.045 H (1.000-1.030) Urine Blood 3+ H (Negative) Urine RBC (Auto) >20 H (0-2) /hpf Diagnostic Findings Chest X-Ray 06/03/25 17:28 Clinical History: Possible sepsis Technique: A frontal view of the chest was obtained Findings: There are no confluent pulmonary infiltrates. The heart size is within normal limits. No pleural effusion or pneumothorax is seen. There is no definite pulmonary nodule. No fracture is noted. No foreign body is seen Impression: No active disease Electronically signed by Catracho Anderson 06-03-2025 6:23 PM Abdomen/Pelvis CT 06/03/25 17:41 Exam(s): CT ABDOMEN + PELVIS With Contrast Oral - High Density Amt: gastro , IV Amt: 90ml EXAM: CT Abdomen and Pelvis With Intravenous Contrast CLINICAL HISTORY: Reason for exam: rlq pain. TECHNIQUE: Axial computed tomography images of the abdomen and pelvis with intravenous contrast. CTDI is 6.25 mGy and DLP is 292.54 mGy-cm. Automated exposure control was utilized for the study. A dose lowering technique was utilized adhering to the principles of ALARA. CONTRAST: Patient received gastro of Oral - High Density and 90ml of IV contrast COMPARISON: No relevant prior studies available. FINDINGS: Lung bases: Unremarkable. ABDOMEN: Liver: Unremarkable. No mass. Gallbladder and bile ducts: Unremarkable. No calcified stones. No ductal dilation. Pancreas: Unremarkable. No mass. No ductal dilation. Spleen: Unremarkable. No splenomegaly. Adrenals: Unremarkable. No mass. Kidneys and ureters: Symmetric renal enhancement. No hydronephrosis. Subcentimeter cortical cyst left kidney; no follow-up indicated. Stomach and bowel: Circumferential mucosal thickening in the colon, greatest in the transverse colon, concerning for colitis. No obstruction. PELVIS: Appendix: Normal appendix. Bladder: Unremarkable. No mass. Reproductive: Unremarkable as visualized. ABDOMEN and PELVIS: Intraperitoneal space: Trace free pelvic fluid. No free air. Bones/joints: No acute fracture. No dislocation. Soft tissues: Unremarkable. Vasculature: Unremarkable. No abdominal aortic aneurysm. Lymph nodes: Unremarkable. No enlarged lymph nodes. IMPRESSION: 1. Normal appendix. 2. Circumferential mucosal thickening in the colon, greatest in the transverse colon, concerning for colitis. Electronically signed by: Cesia Hamilton M.D. 06/03/25 20:36 PM PG Care Time/CCT Total # of Minutes Spent Total Time Spent with Patient: Total time spent is greater than 50% in coordination of care (as documented) at patient's floor/unit and/or counseling patient: Coding Level of Care Code 70323 SUB INP/OBS CARE 2/35MIN Diagnoses Fever R50.9 Breast cancer C50.919 Rash R21
[2025-06-05 02:53] VITALS: O2SAT 94
[2025-06-05 07:34] VITALS: TEMP 98.1
[2025-06-05 08:47] LABS: Hematocrit (blood only) 34.4 % (37.0-47.0); Hemoglobin 11.4 g/dl (12.0-16.0); Mean Corpuscular Hemoglobin 31.5 pg (25.0-34.0); Mean Corpuscular Volume 95.0 fL (80.0-100.0); Platelet Count 209 K/uL (130-400); RDW Standard Deviation 44.7 fL (36.4-46.3); Red Blood Count 3.62 M/uL (4.20-5.40); White Blood Count 5.42 K/ul (4.8-10.8)
--- NOTE | 2025-06-05 08:56 | Discharge Summary ---
Date of Service June 05, 2025 Admission HPI Per Admitting Provider Kacey Beckett is a 34yo female with history of metastatic breast cancer presenting with fever, chills and rigors. Patient discovered a lump in her right breast 8 months ago. She had an ultrasound performed 03/07 which showed a mass at the 10 o'clock position with axillary lymphadenopathy. Patient had an US guided biopsy performed on 02/26/25 which revealed an invasive mammary carcinoma grade 3, ER+ AR-, HER-2 - . She had a PET scan performed on 04/09/25 which revealed an ischial lytic bone lesion. Patient follows with Dr. Vasquez at [facility] and is planning to start her treatment plan next week. She had a bone marrow biopsy performed yesterday [place] [facility] Presents today with fever, chills and rigors. After her CT scan here she developed nausea, vomiting x 5 episodes and diarrhea. No cough, SOB, chest pain. No urinary symptoms. In the ER patient is afebrile. ER Course: Vancomycin Zosyn NSS x 1L Tylenol IV Contrast Dye Zofran Principal Diagnosis Acute febrile illness, most likely related to malignancy Drug reaction Discharge Exam General: Awake, conversant Heart: S1, S2/regular rate and rhythm, no murmur rubs or gallops Lungs: Clear to auscultation bilaterally. Normal effort Abdomen: Soft/nontender/nondistended. No hepatosplenomegaly Extremities: No clubbing/cyanosis. No edema Behavior: Appropriate, cooperative Discharge Data Allergies Allergy/AdvReac Type Severity Reaction Status Date / Time No Known Allergies Allergy Unverified 06/03/25 18:26 Consultations 06/03/25 21:19 ED Decision to Admit Stat Ordered Studies Chest X-Ray 06/03/25 17:28 Clinical History: Possible sepsis Technique: A frontal view of the chest was obtained Findings: There are no confluent pulmonary infiltrates. The heart size is within normal limits. No pleural effusion or pneumothorax is seen. There is no definite pulmonary nodule. No fracture is noted. No foreign body is seen Impression: No active disease Electronically signed by Catracho Anderson 06-03-2025 6:23 PM Abdomen/Pelvis CT 06/03/25 17:41 Exam(s): CT ABDOMEN + PELVIS With Contrast Oral - High Density Amt: gastro , IV Amt: 90ml EXAM: CT Abdomen and Pelvis With Intravenous Contrast CLINICAL HISTORY: Reason for exam: rlq pain. TECHNIQUE: Axial computed tomography images of the abdomen and pelvis with intravenous contrast. CTDI is 6.25 mGy and DLP is 292.54 mGy-cm. Automated exposure control was utilized for the study. A dose lowering technique was utilized adhering to the principles of ALARA. CONTRAST: Patient received gastro of Oral - High Density and 90ml of IV contrast COMPARISON: No relevant prior studies available. FINDINGS: Lung bases: Unremarkable. ABDOMEN: Liver: Unremarkable. No mass. Gallbladder and bile ducts: Unremarkable. No calcified stones. No ductal dilation. Pancreas: Unremarkable. No mass. No ductal dilation. Spleen: Unremarkable. No splenomegaly. Adrenals: Unremarkable. No mass. Kidneys and ureters: Symmetric renal enhancement. No hydronephrosis. Subcentimeter cortical cyst left kidney; no follow-up indicated. Stomach and bowel: Circumferential mucosal thickening in the colon, greatest in the transverse colon, concerning for colitis. No obstruction. PELVIS: Appendix: Normal appendix. Bladder: Unremarkable. No mass. Reproductive: Unremarkable as visualized. ABDOMEN and PELVIS: Intraperitoneal space: Trace free pelvic fluid. No free air. Bones/joints: No acute fracture. No dislocation. Soft tissues: Unremarkable. Vasculature: Unremarkable. No abdominal aortic aneurysm. Lymph nodes: Unremarkable. No enlarged lymph nodes. IMPRESSION: 1. Normal appendix. 2. Circumferential mucosal thickening in the colon, greatest in the transverse colon, concerning for colitis. Electronically signed by: Cesia Hamilton M.D. 06/03/25 20:36 PM 06/03/25 17:41 CT abd pelvis oral and IV con Stat Hospital Course (1) Fever: (2) Breast cancer: (3) Rash: Plan 34yo female with newly diagnosed metastatic breast cancer not yet on treatment presenting with fever, chills and rigors. Patient had a bone marrow biopsy performed yesterday [place] [facility] Presently afebrile, HD stable. Normal WBC count and differential, Procalcitonin and Lactate levels. #Fever - source unclear. Patient presently afebrile and non-toxic in appearance Blood cultures so far negative Labs unremarkable No leukocytosis -Patient received Vancomycin and Zosyn empirically x 1 dose. Will hold off on additional antibiotics for now as patient developed a rash (uncertain which is the offending agent) Continue to vital signs -Tylenol PRN -Zofran PRN #Breast Cancer - metastatic to bone, dura. Patient follows at [facility] and is schedu led to start treatment next week. Fever could possibly be secondary to patient's malignancy? -Anti-emetics PRN #Rash due to drug reaction- patient developed some flushing rash after receiving antibiotics. No documented allergies. Possibly secondary to antibiotics vs contrast dye? Patient states that she developed nausea and diarrhea following administration of contrast dye -IV Benadryl given -Holding additional antibiotics Patient wishes to be discharged today. She has follow-up appointment set up with her cancer doctor. Total Time Total Time Spent Total Time Spent (In Minutes): 35 Discharge Plan Discharge Items Patient Disposition: Home - Self-Care Reason For Visit: FEVER Discharge Diagnosis: Acute febrile illness, most likely related to malignancy Drug reaction Condition on Discharge: Fair Activity: Resume your previous activity Non-emergency contact: Primary Care Provider Call non-emergency contact if: you have any medication questions and your symptoms worsen Follow-up/Referrals: Socorro Rodriguez MD [Primary Care Provider] - (Please call the office to schedule a follow up appointment) Diet: Regular Addtl Attending Provider Instructions: Advised to follow-up with PCP in 1 week Advised to follow-up with oncologist as previously planned Advised to note that you presented with a fever and we could not find a source of infection. All cultures have been negative and you did not continue to spike fevers. Most likely your fevers are related to your malignancy rather than any infection. You are being discharged off of any antibiotics. Pending Studies at Discharge: No Stand-Alone Forms: My [facility] Medications and DC Order Prescriptions: No Action No Known Home Medications Discharge Orders: Discharge Order (Routine); Ordered 06/05/25 Ordered By: Dixon Hardy Admission Data Admit Date/Time: 06/03/25 21:52 Attending Provider: Dixon Hardy Admit Provider: Karla Muse Primary Care Provider: Socorro Rodriguez Other Providers: Karla Muse
[2025-06-05 10:33] VITALS: BP 107/65; PULSE 72
--- NOTE | 2025-06-06 14:46 | Electrocardiogram Report ---
Test Reason : Blood Pressure : */* mmHG Vent. Rate : 108 BPM Atrial Rate : 108 BPM P-R Int : 128 ms QRS Dur : 88 ms QT Int : 336 ms P-R-T Axes : 77 78 50 degrees QTcB Int : 450 ms Sinus tachycardia Possible Left atrial enlargement Nonspecific ST and T wave abnormality Abnormal ECG When compared with ECG of 03-Jun-2025 17:38, (unconfirmed) No significant change was found Confirmed by Doug Carbone ([id number]) on 06/06/2025 2:46:31 PM Referred By: REFERRED SELF Confirmed By: Doug Carbone
--- NOTE | 2025-06-07 06:43 | Electrocardiogram Report ---
Test Reason : Blood Pressure : */* mmHG Vent. Rate : 109 BPM Atrial Rate : 109 BPM P-R Int : 120 ms QRS Dur : 78 ms QT Int : 298 ms P-R-T Axes : 61 60 51 degrees QTcB Int : 401 ms Sinus tachycardia T wave abnormality, consider inferior ischemia Abnormal ECG No previous ECGs available Confirmed by Doug Carbone ([id number]) on 06/07/2025 6:42:41 AM Referred By: REFERRED SELF Confirmed By: Doug Carbnoe
== END 2025-06-05 11:13 | disposition home or self-care (01) | DRG 598 ==
LOC: SUATTDRO → ED 17:16 → SUATTDRO 21:52 → 2S 21:52